=== PATIENT | female | born 1950 | race Caucasian/White ===

== ENCOUNTER 2018-11-27 13:10 | Day surgery (SDC) | payer MEDICARE, OTHER ==
[~2018-11-27] VITALS: Ht 165.1 cm; Wt 74.3 kg
[2018-11-27] MEDS ORDERED: PROZAC 20MG20 MG PO (13:40)
[2018-11-27] MEDS ORDERED: PROLENSA OS (13:41)
[2018-11-27] MEDS ORDERED: CIPRO 500MG TA500 MG PO (14:09)
[2018-11-27] MEDS ORDERED: PERCOCET 325 MG1 TA2 PO (14:10)
[2018-11-27 14:11] VITALS: BP 152/65; PULSE 60; TEMP 99
[2018-11-27 17:30] VITALS: BP 146/66; PULSE 58; TEMP 98.7
--- NOTE | 2018-11-27 17:30 | NUR ---
Pt to [facility] bay 8 via cart from PACU. Pt awake and alert. Denies pain or nausea. Pudding and water given per pt request. in room. Will continue to monitor. Call light within reach.
[2018-11-27 17:43] VITALS: TEMP 98.7
[2018-11-27 17:45] VITALS: BP 161/73; PULSE 59
--- NOTE | 2018-11-27 17:45 | NUR ---
Pt continues to rest. Denies needs. Call light within reach.
--- NOTE | 2018-11-27 18:00 | NUR ---
Pt up to restroom with stand by assistance. Gait steady. Pt voids large amount without difficulties. Pt back to room. IV site discontinued with all parts intact. Pt up to dress. Call light within reach.
--- NOTE | 2018-11-27 18:00 | NUR ---
Pt escorted to private car via wheel chair. Pt accompanied home by her .
== END 2018-11-27 18:15 | disposition home or self-care (01) ==
LOC: SDCO 13:10
DX: N20.1 Calculus of ureter (principal); I10 Essential (primary) hypertension; Z80.9 Family history of malignant neoplasm, unspecified
CPT/HCPCS: C1726; C1769; J0690; J1100; J1885; J2405; J2704; J3010; J7120; Q9967

== ENCOUNTER 2022-02-14 08:33 | Inpatient (IN) | payer MEDICARE, OTHER ==
[2022-02-14] VITALS (12 sets, daily range): BP systolic 135–155; BP diastolic 66–82; PULSE 60–90; TEMP 97.6–98.6
[~2022-02-14] VITALS: Ht 162.6 cm; Wt 66.3 kg
[~2022-02-14 08:33] MED LIST: CIPRO 500MG TA500 MG PO; PERCOCET 325 MG1 TA2 PO; PROLENSA OS; PROZAC 20MG20 MG PO
[2022-02-14] MEDS ORDERED: ASPIRIN 81M81 MG/TA2 PO (09:25)
[2022-02-14 09:27] LABS: HEMATOCRIT 45.8 % (37.0-47.0); HEMOGLOBIN 14.9 g/dl (12.5-16.0); MEAN CELL VOLUME 91 fl (80.0-100.0); MEAN CORPUSCULAR HEMOGLOBIN 30 pg (27-31); MEAN CORPUSCULAR HGB CONC 33 g/dl (33.0-37.0); MEAN PLATELET VOLUME 10.2 fl (7.4-10.4); PLATELET COUNT 173 K/mm3 (130-400); RED BLOOD COUNT 5.03 M/mm3 (4.10-5.30); REDCELL DISTRIBUTION WIDTH-CV 12.9 % (11.5-14.5)
[2022-02-14] MEDS ORDERED: B-12 500 MCG PO (09:27)
[2022-02-14 09:44] LABS: CALCIUM 9.4 mg/dL (8.4-10.2); CREATININE, serum 0.74 mg/dL (0.57-1.11); POTASSIUM 4.2 mmol/L (3.5-4.5)
[2022-02-15 00:26] VITALS: BP 125/61; PULSE 73; TEMP 97.7
--- NOTE | 2022-02-15 02:55 | NUR ---
Report received from day shift RN. Assessment and medication administration completed without difficulty. Pt is A&Ox3 and pleasant. 16fr Vera catheter in place and to DD. Pt has had minimal complaints of pain this shift. Pain medication given per EMAR. Pt tolerating water so far, has said that she has no appetite as of yet. Will continue to monitor. Call light within reach.
[2022-02-15 05:01] VITALS: BP 119/59; PULSE 65; TEMP 98.1
[2022-02-15 06:45] LABS: BASO % 0.1 % (0.0-2.0); GRAN # 10.7 K/mm3 (1.4-6.5); GRAN % 84.7 % (42.2-75.2); HEMATOCRIT 41.1 % (37.0-47.0); HEMOGLOBIN 13.5 g/dl (12.5-16.0); LYMPH % 8.2 % (20.0-51.0); MEAN CELL VOLUME 91 fl (80.0-100.0); MEAN CORPUSCULAR HEMOGLOBIN 30 pg (27-31); MEAN CORPUSCULAR HGB CONC 33 g/dl (33.0-37.0); MEAN PLATELET VOLUME 10.8 fl (7.4-10.4); MONO # 0.8 K/mm3 (0.1-0.6); MONO % 6.6 % (1.7-9.3); PLATELET COUNT 174 K/mm3 (130-400); RED BLOOD COUNT 4.52 M/mm3 (4.10-5.30); REDCELL DISTRIBUTION WIDTH-CV 12.8 % (11.5-14.5)
[2022-02-15 07:45] VITALS: BP 138/70; PULSE 62; TEMP 98.1
[2022-02-15] MEDS ORDERED: NORCO 325 MG-51 TAB PO (08:01)
[2022-02-15] MEDS ORDERED: COLACE 100100 MG/CAP PO (08:01)
--- NOTE | 2022-02-15 09:00 | NUR ---
PT A&OX3 RESTING IN BED WITH IN ROOM. AM MEDS GIVEN AND ASSESSMENT COMPLETED. PT REPORTS A PN OF 5/10 IN ABDOMEN. BARBOSA DISCONTINUED WITH AN OUTPUT OF CLEAR URINE. 2 MIDLINE INCISIONS THAT ARE CDI. IV TO INT. NO OTHER NEEDS AT THIS TIME. CALL LIGHT WITHIN REACH.
--- NOTE | 2022-02-15 10:41 | NUR ---
Initial visit; Patient thanked [employer] Adminstrator for looking in on her and offering God's blessings and to keep her in [employer] Adminstrator's prayers.
--- NOTE | 2022-02-15 11:13 | NUR ---
LAUREN met with the patient and her , Renee (ph#[phone]), to discuss discharge plan. The patient lives in [place] with her . She reports independence with ADLs and does not have any DME. The patient's PCP is Dr. Nena Marie in [place] and she receives her medications from [facility]. The patient does not have a DPOA-HC, but she was interested in obtaining a form. LAUREN provided. The patient plans to return home with her upon discharge. No additional needs at this time. *Discharge plan: home with *
[2022-02-15 12:27] VITALS: BP 144/73; PULSE 56; TEMP 98.8
--- NOTE | 2022-02-15 13:20 | NUR ---
PATIENT DISCHARGING HOME VIA WC TO PERSONAL VEHICLE WITH . GAVE DISCHARGE INSTRUCTIONS, E-SCRIPTS SENT, AND DISCUSSED F/U APT. ANSWERED QUESTIONS/CONCERNS. RN DC'D IV SITE AND COVERED WITH [employer]. PATIENT IS DRESSED, PACKED AND DISCHARGED.
== END 2022-02-15 13:05 | disposition home or self-care (01) | DRG 657 ==
LOC: SDCO 08:33 → SURG 08:33 → INPTSU 08:33 → SURG 10:30 → EDSTATUS 10:30 → SURG 11:24
PROVIDERS: Nurse Anesthetist, Certified Registered; ADMIT Urology
PROC: 0TT14ZZ Resection of Left Kidney, Percutaneous Endoscopic Approach (ICD-10-PCS; principal; 2022-02-14 10:30)
DX: C64.2 Malignant neoplasm of left kidney, except renal pelvis (principal); D68.51 Activated protein C resistance; I10 Essential (primary) hypertension; H91.90 Unspecified hearing loss, unspecified ear; H35.00 Unspecified background retinopathy; E78.00 Pure hypercholesterolemia, unspecified; H93.19 Tinnitus, unspecified ear; Z87.442 Personal history of urinary calculi; Z72.89 Other problems related to lifestyle; Z79.82 Long term (current) use of aspirin; Z23 Encounter for immunization
CPT/HCPCS: A4314; A9284; J0690; J1100; J1170; J1644; J1650; J1885; J2250; J2405; J2704; J2795; J3010; J7120